=== PATIENT | male | born 1990 | race Two or more races ===

== ENCOUNTER 2020-01-28 07:49 | Emergency (ER) | payer SELFPAY ==
[~2020-01-28] VITALS: Ht 167.6 cm; Wt 74.8 kg
[2020-01-28 07:55] VITALS: BP 126/78
[2020-01-28] MEDS ORDERED: cefTRIAXone SOD 1,000 MG VL IM ONE (08:15)
== END 2020-01-28 08:43 | disposition home or self-care (01) ==
LOC: ER 07:49
DX: Z48.00 Encounter for change or removal of nonsurgical wound dressing (principal)
CPT/HCPCS: 96372; 99283; J0696